=== PATIENT | female | born 1995 | race Caucasian/White ===

== ENCOUNTER 2019-03-12 08:58 | Emergency (ER) | payer SELFPAY ==
[~2019-03-12] VITALS: Ht 157.5 cm; Wt 72.8 kg
[~2019-03-12 08:58] MED LIST: GUAI120S25 PO; NITR-58 PO; ONDA4TAB8 PO; PHEN-537 PO
[2019-03-12 09:12] VITALS: Ht 157.5 cm; Wt 72.8 kg
[2019-03-12] MEDS ORDERED: ONDANSETRON 4 MG INJ IV STA (09:45)
--- NOTE | 2019-03-12 09:45 | ERD ---
ER Documentation Chief Complaint Chief Complaint c/o coughing, abdominal pain with N/V x2 days HPI Patient is a 23 years old female with past medical history of seizures presenting to the clinic for 1 week history of fever, chills, body aches, malaise, coryza, right ear pain, throat pain. Patient reports new onset of coughing since 2 days ago with nausea and NBNB emesis. Patient admits to 6 watery diarrhea episodes 3 days ago that has resolved. Patient is also complaining of urinary frequency with foul odor for 2 weeks but denies dysuria. She admits to drinking beer 1 week ago. Patient admits to taking morphine 30 mg yesterday. ROS All systems reviewed and are negative except as per history of present illness. Medications Home Meds Active Scripts Rysvaytsgqf-O-Hvqfrwfvpr Hb* (Guaifenesin* DM Syrup) 120 Ml Syrup, 10 ML PO Q4H PRN for COUGH for 7 Days, ML Prov:MAEGAN GIRALDO PA-C 03/12/19 Ondansetron Hcl* (Zofran*) 4 Mg Tablet, 4 MG PO Q8H PRN for NAUSEA AND/OR VOMITING, #30 TAB Prov:MAEGAN GIRALDO PA-C 03/12/19 Phenazopyridine Hcl* (Pyridium*) 100 Mg Tab, 100 MG PO TID PRN for URINARY PAIN, #8 TAB Prov:MAEGAN GIRALDO PA-C 03/12/19 Nitrofurantoin Monohyd Macrocr* (Macrobid*) 100 Mg Capsr, 100 MG PO BID for 7 Days, #14 CAP Prov:MAEGAN GIRALDO PA-C 03/12/19 Allergies Allergies: Coded Allergies: divalproex sodium (Verified Allergy, Unknown, throat closing, 03/12/19) Uncoded Allergies: PENICILLIN (Allergy, Unknown, throat closing, 03/12/19) PMhx/Soc Medical and Surgical Hx: pt denies Medical Hx, pt denies Surgical Hx History of Surgery: No Anesthesia Reaction: No Hx Respiratory Disorders: No Hx Cardiac Disorders: No Hx Psychiatric Problems: No Hx Miscellaneous Medical Probl: No Hx Alcohol Use: No Hx Substance Use: No Hx Tobacco Use: No Smoking Status: Never smoker FmHx Family History: No diabetes, No coronary disease, No other Physical Exam Vitals Vital Signs Date Temp Pulse Resp B/P (MAP) Pulse Ox O2 O2 Flow FiO2 Time Delivery Rate 03/12/19 98.1 75 18 112/78 100 Room Air 11:27 (89) 03/12/19 97.5 84 20 113/62 99 09:12 (79) Physical Exam Const: No acute distress Head: Atraumatic Resp: Clear to auscultation bilaterally Cardio: Regular rate and rhythm, no murmurs Abd: Soft, non tender, non distended. Normal bowel sounds Back: No midline or flank tenderness. Left CVAT. Ext: No cyanosis, or edema Psych: Normal Mood and Affect Result Diagram: 03/12/19 1001 03/12/19 1001 Results 24 hrs Laboratory Tests Test 03/12/19 10:01 03/12/19 10:09 White Blood Count 16.8 10^3/ul Red Blood Count 4.92 10^6/ul Hemoglobin 14.8 g/dl Hematocrit 45.3 % Mean Corpuscular Volume 92.1 fl Mean Corpuscular Hemoglobin 30.1 pg Mean Corpuscular Hemoglobin Concent 32.7 g/dl Red Cell Distribution Width 13.4 % Platelet Count 387 10^3/UL Mean Platelet Volume 9.8 fl Immature Granulocytes % 0.400 % Neutrophils % 73.9 % Lymphocytes % 17.9 % Monocytes % 6.3 % Eosinophils % 1.1 % Basophils % 0.4 % Nucleated Red Blood Cells % 0.0 /100WBC Immature Granulocytes # 0.060 10^3/ul Neutrophils # 12.4 10^3/ul Lymphocytes # 3.0 10^3/ul Monocytes # 1.1 10^3/ul Eosinophils # 0.2 10^3/ul Basophils # 0.1 10^3/ul Nucleated Red Blood Cells # 0.0 10^3/ul Urine Color YELLOW Urine Clarity CLEAR Urine pH 5.0 Urine Specific [place] 1.019 Urine Ketones NEGATIVE mg/dL Urine Nitrite POSITIVE mg/dL Urine Bilirubin NEGATIVE mg/dL Urine Urobilinogen NEGATIVE mg/dL Urine Leukocyte Esterase TRACE Otilia/ul Urine Microscopic RBC 1 /HPF Urine Microscopic WBC 15 /HPF Urine Bacteria FEW /HPF Urine Mucus FEW /HPF Urine Hemoglobin NEGATIVE mg/dL Urine Glucose NEGATIVE mg/dL Urine Total Protein NEGATIVE mg/dl Sodium Level 139 mmol/L Potassium Level 4.2 mmol/L Chloride Level 104 mmol/L Carbon Dioxide Level 28 mmol/L Anion Gap 7 Blood Urea Nitrogen 12 mg/dl Creatinine 0.68 mg/dl Est Glomerular Filtrat Rate mL/min > 60 mL/min Glucose Level 86 mg/dl Calcium Level 9.1 mg/dl Total Bilirubin 0.2 mg/dl Direct Bilirubin 0.00 mg/dl Indirect Bilirubin 0.2 mg/dl Aspartate Amino Transf (AST/SGOT) 31 IU/L Alanine Aminotransferase (ALT/SGPT) 42 IU/L Alkaline Phosphatase 69 IU/L Total Protein 8.3 g/dl Albumin 4.2 g/dl Globulin 4.10 g/dl Albumin/Globulin Ratio 1.02 POC Beta HCG, Qualitative NEGATIVE Current Medications Medications Dose Sig/Rosanna Start Time Status Last (Trade) Ordered Route PRN Stop Time Admin Dose Reason Admin Ondansetron 4 mg ONCE STAT 03/12/19 DC 03/12/19 HCl (Zofran IV 09:45 10:11 Inj) 03/12/19 09:47 Sodium 1,000 ml @ Q1H ONCE 03/12/19 DC 03/12/19 Chloride 1,000 mls/hr IV 10:00 10:09 03/12/19 10:59 Ceftriaxone 50 ml @ ONCE ONCE 03/12/19 DC 03/12/19 Sodium 100 mls/hr IVPB 11:00 11:05 03/12/19 11:29 200 mg ONCE ONCE 03/12/19 DC 03/12/19 Phenazopyridi PO 11:00 11:05 ne HCl 03/12/19 11:01 (Pyridium) Procedures/MDM Patient seen and evaluated for multiple complaints. CBC, CMP, urinalysis revealed leukocytosis, leukocyte esterase, urine nitrates, urine bacteria otherwise unremarkable. Leukocytosis most likely due to UTI infection without complications. Low suspicion of sepsis, appendicitis, cholecystitis, colitis, pancreatitis, pyelonephritis. Patient is also experiencing cold-like symptoms (viral). Patient was given 1 L NS IV, Zofran 4 mg IV, Pyridium p.o., Rocephin 1 g IV in ED. Renal ultrasound revealed: 1. No sonographic evidence for obstructive uropathy. 2. Decompressed bladder. Patient stable and ready for discharge. Follow-up with PCP. Patient will be discharged with Macrobid, Pyridium, guaifenesin, Zofran. Departure Diagnosis: Primary Impression: UTI (urinary tract infection) Urinary tract infection type: acute cystitis Hematuria presence: without hematuria Qualified Codes: N30.00 - Acute cystitis without hematuria Condition: Stable Patient Instructions: Understanding Urinary Tract Infections (UTIs) Referrals: [facility] Additional Instructions: Patient advised to return to the ED immediately for new or worsening symptoms. Patient advised to follow up with primary care provider in the next 24-48 hours. Patient verbalized understanding and agrees with treatment plan and course of action. If patient has no primary care they may follow up with [facility] + [facility] [address] [place] [id number] or [facility] [address] [place] [address] [address] [facility] [address] [place] [address] MAEGAN GIRALDO PA-C Mar 12, 2019 09:45
[2019-03-12] MEDS ORDERED: SOD CHLORIDE 0.9% 1,000 ML IV ONE (10:00)
[2019-03-12] MEDS ORDERED: PHENAZOPYRIDINE 100 MG TAB PO ONE (11:00)
[2019-03-12] MEDS ORDERED: CEFTRIAXONE 1 GM/50 ML (PMX) 50 ML IVPB ONE (11:00)
[2019-03-12 11:27] VITALS: BP 112/78; PULSE 75; RESP 18
== END 2019-03-12 11:29 | disposition home or self-care (01) ==
LOC: FTE 08:58
DX: N30.00 Acute cystitis without hematuria (principal)
CPT/HCPCS: 76775; 80053; 81001; 81025; 85025; 96374; 96375; 99285; J0696; J2405; J7030